=== PATIENT | female | born 2000 | race Caucasian/White ===

== ENCOUNTER 2022-11-12 23:36 | Emergency (ER) | payer OTHER ==
[~2022-11-12] VITALS: Ht 167.6 cm; Wt 55.8 kg
[2022-11-13] MEDS ORDERED: KETOROLAC TROMETHAMINE 60 MG INJ IM ONE ×2 (00:22→00:30)
[2022-11-13 00:34] VITALS: BP 125/74; TEMP 98; O2SAT 99
== END 2022-11-13 00:39 | disposition home or self-care (01) ==
LOC: ER 23:40
DX: R10.2 Pelvic and perineal pain (principal)
CPT/HCPCS: 99283; 96372; J1885; A4663